=== PATIENT | male | born 1945 | race Caucasian/White ===

== ENCOUNTER 2019-05-17 19:39 | Emergency (ER) | payer MEDICARE, OTHER, SELFPAY ==
[2019-05-17 19:50] VITALS: BP 180/112; PULSE 100; RESP 17; TEMP 37.2; O2SAT 99; BMI 31.3
[2019-05-17 20:09] LABS: Add Manual Diff / Slide Review NO; Basophils Absolute Auto 0 /uL (0-100); Basophils Percent Auto 0.5 % (0-2); Eosinophils Absolute Auto 0 /uL (0-450); Eosinophils Percent Auto 0.2 % (2-4); Hematocrit 45.4 % (41-53); Hemoglobin 15.5 g/dL (13.5-17.5); Lymphocytes Absolute Auto 1000 /uL (1100-4500); Lymphocytes Percent Auto 11.3 % (25-40); Mean Corpuscular HGB Conc 34.1 % (30-36); Mean Corpuscular Hemoglobin 31.7 PG (26-34); Mean Corpuscular Volume 92.8 fL (80-100); Monocytes Absolute Auto 300 /uL (0-900); Monocytes Percent Auto 3.8 % (3-14); Neutrophils Absolute Auto 7500 /uL (1500-7000); Neutrophils Percent Auto 84.2 % (50-75); Platelet Count 210 X10^3/uL (150-400); Red Blood Cell Count 4.89 X10^6/uL (4.5-5.9); Red Cell Distribution Width 13.2 % (11.6-14.8); White Blood Cell Count 8.9 X10^3/uL (4.5-11.0)
[2019-05-17 20:11] LABS: Prothrombin Time 11.8 SECONDS (10.1-12.7)
--- NOTE | 2019-05-17 20:11 | ED.CHESTPAIN ---
HPI - Chest Pain General Chief Complaint: Chest Pain Stated Complaint: vomiting, chest pain Time Seen by Provider: 05/17/19 20:04 Source: patient Mode of arrival: ambulatory Limitations: no limitations History of Present Illness HPI narrative: Patient is a 73-year-old male who presents with epigastric pain starting around 10:00 a.m. today. He had some oatmeal he feels like there is a knot gripping right in his epigastric area slightly behind his sternum. He denies any actual chest pain. It seems to come and go throughout the day. He got diaphoretic and threw up once as well. He has no abdominal pain. Denies shortness of breath with exertion. He has had a few episodes throughout the day. He says his discomfort now is completely gone. He was previously admitted for a TIA at [facility] complaint: chest pain (Epigastric) Related Data Home Medications Medication Instructions Recorded Confirmed aspirin 81 mg PO QDAY #0 02/15/13 Previous Rx's Medication Instructions Recorded alprazolam 0 mg PO QDAY #10 tab 04/25/17 amlodipine [Norvasc] 5 mg PO QDAY #90 tab 05/20/17 Allergies Allergy/AdvReac Type Severity Reaction Status Date / Time fire ant [FIRE ANT] Allergy Severe ANAPHYLAXIS Verified 05/17/19 19:50 venom-wasp [WASP VENOM] Allergy Severe ANAPHYLAXIS Verified 05/17/19 19:50 FROM YELLOW JACKETS hydrochlorothiazide Allergy Mild LETHARGY, Verified 05/17/19 19:50 [From ZESTORETIC] DEPRESSION lisinopril [From ZESTORETIC] Allergy Mild LETHARGY, Verified 05/17/19 19:50 DEPRESSION NEWSPAPER/MAGAZINE INK Allergy Mild SNEEZING Uncoded 12/28/17 11:58 Review of Systems Review of Systems Narrative: GENERAL: Denies chills, fatigue, malaise, fever, sweats, travel HEENT: Denies sinus pain, ear pain, sore throat, difficulty swallowing, neck pain RESPIRATORY: Denies dyspnea, cough, wheezing, hemoptysis, sputum. CARDIOVASCULAR: See HPI GASTROINTESTINAL: Denies nausea, vomiting, abdominal pain, diarrhea, constipation, melena. : Denies dysuria, frequency, incontinence, hematuria, urinary retention, flank pain. MUSCULOSKELETAL: Denies weakness, joint pain, or bony pain SKIN: No rash, no erythema, no pruritus NEUROLOGIC: Denies weakness, dizziness, headache, numbness, change in speech, confusion PSYCHIATRIC: No concerning psychosocial issues. 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 HEENT: Head atraumatic,EOMI, pupils reactive, face symmetric, [moist] mucous membranes CARDIOVASCULAR: Regular rate and rhythm without murmurs, rubs or gallops. RESPIRATORY: Breath sounds equal bilaterally, no wheezes rales or rhonchi. ABDOMEN: Soft, nontender. Normoactive bowel sounds all 4 quadrants. No guarding or rebound. : No CVA tenderness EXTREMITIES: Normal range of motion, no clubbing or edema. Neurovascularly intact NEUROLOGICAL: Alert and oriented x4.Normal gait and speech. Cranial nerves II through XII grossly intact. SKIN: Warm, dry, no laceration, no petechiae, no rashes or lesions. Scores HEART Score Heart Score history: Slightly Suspicious Heart Score EKG: Normal Heart Score Age: > or = 65 years old Heart Score risk factors: 1-2 risk factors Heart Score troponin: < or = to normal limit Heart Score Total: 3 Course Orders Ordered: ED Orders 05/17/19 19:55 Complete Blood Count AUTO DIFF Stat Comprehensive Metabolic Panel Stat Lipase Stat Partial Thromboplastin Time Stat Prothrombin Time INR Stat Troponin & CK Cardiac Panel Stat 05/17/19 21:33 XR chest 1V Stat Vital Signs Vital signs: Vital Signs - 8 hr 05/17/19 19:50 05/17/19 21:52 05/17/19 22:16 Temperature 98.9 F Pulse Rate 100 H 80 83 Respiratory Rate 17 24 17 Blood Pressure 180/112 H 128/80 Blood Pressure [Right Arm] 128/80 Pulse Oximetry 99 97 97 MDM - Chest Pain Lab Data Attestation: I reviewed the patient's lab results. Result diagrams: 05/17/19 19:55 05/17/19 19:55 Labs: Lab Results 05/17/19 05/17/19 05/17/19 Range/Units 19:55 19:55 19:55 WBC 8.9 (4.5-11.0) X10^3/uL RBC 4.89 (4.5-5.9) X10^6/uL Hgb 15.5 (13.5-17.5) g/dL Hct 45.4 (41-53) % MCV 92.8 (80-100) fL MCH 31.7 (26-34) PG MCHC 34.1 (30-36) % RDW 13.2 (11.6-14.8) % Plt Count 210 (150-400) X10^3/uL Neut % (Auto) 84.2 H (50-75) % Lymph % (Auto) 11.3 L (25-40) % Sargent % (Auto) 3.8 (3-14) % Eos % (Auto) 0.2 L (2-4) % Baso % (Auto) 0.5 (0-2) % Neut # (Auto) 7500 H (1613-2415) /uL Lymph # (Auto) 1000 L (0505-9810) /uL Sargent # (Auto) 300 (0-900) /uL Eos # (Auto) 0 (0-450) /uL Baso # (Auto) 0 (0-100) /uL PT 11.8 (10.1-12.7) SECONDS INR 1.0 (0.9-1.3) APTT 29 (26.4-36.2) SECONDS Sodium 143 (137-145) mmol/L Potassium 4.3 (3.4-5.1) mmol/L Chloride 104 (98-107) mmol/L Carbon Dioxide 27 (22-32) mmol/L BUN 17 (9-20) mg/dL Creatinine 0.90 (0.66-1.25) mg/dL Estimated GFR > 60.0 (>60) mL/min BUN/Creatinine Ratio 18.9 (6-22) Glucose 125 H (80-110) mg/dL Calcium 10.2 (8.4-10.2) mg/dL Total Bilirubin 2.2 H (0.2-1.3) mg/dL AST 252 H (17-59) IU/L ALT 220 H (21-72) IU/L Alkaline Phosphatase 97 (38-126) U/L Total Creatine Kinase (55-170) U/L CK-MB (CK-2) (<2.37) ng/mL CK-MB (CK-2) Rel Index (1.5-5.0) % Troponin I (0.01-0.034) ng/mL Total Protein 8.1 (6.3-8.2) g/dL Albumin 4.5 (3.5-5.0) g/dL Globulin 3.6 (1.7-4.1) g/dL Albumin/Globulin Ratio 1.3 (1.0-2.8) Lipase 51 (23-300) U/L 05/17/19 Range/Units 19:55 WBC (4.5-11.0) X10^3/uL RBC (4.5-5.9) X10^6/uL Hgb (13.5-17.5) g/dL Hct (41-53) % MCV (80-100) fL MCH (26-34) PG MCHC (30-36) % RDW (11.6-14.8) % Plt Count (150-400) X10^3/uL Neut % (Auto) (50-75) % Lymph % (Auto) (25-40) % Sargent % (Auto) (3-14) % Eos % (Auto) (2-4) % Baso % (Auto) (0-2) % Neut # (Auto) (6870-3384) /uL Lymph # (Auto) (0051-7412) /uL Sargent # (Auto) (0-900) /uL Eos # (Auto) (0-450) /uL Baso # (Auto) (0-100) /uL PT (10.1-12.7) SECONDS INR (0.9-1.3) APTT (26.4-36.2) SECONDS Sodium (137-145) mmol/L Potassium (3.4-5.1) mmol/L Chloride (98-107) mmol/L Carbon Dioxide (22-32) mmol/L BUN (9-20) mg/dL Creatinine (0.66-1.25) mg/dL Estimated GFR (>60) mL/min BUN/Creatinine Ratio (6-22) Glucose (80-110) mg/dL Calcium (8.4-10.2) mg/dL Total Bilirubin (0.2-1.3) mg/dL AST (17-59) IU/L ALT (21-72) IU/L Alkaline Phosphatase (38-126) U/L Total Creatine Kinase 208 H (55-170) U/L CK-MB (CK-2) 2.37 (<2.37) ng/mL CK-MB (CK-2) Rel Index 1.1 L (1.5-5.0) % Troponin I 0.021 (0.01-0.034) ng/mL Total Protein (6.3-8.2) g/dL Albumin (3.5-5.0) g/dL Globulin (1.7-4.1) g/dL Albumin/Globulin Ratio (1.0-2.8) Lipase (23-300) U/L Imaging Data Chest x-ray: Radiologist's impression: PROCEDURE: XR CHEST 1V INDICATIONS: chest pain TECHNIQUE: One view of the chest was acquired. COMPARISON: None. FINDINGS: Surgical changes and devices: None. Lungs and pleura: Lungs are clear. No pleural effusions or pneumothorax. Mediastinum: Mediastinal contours appear normal. Heart size is normal. Bones and chest wall: No suspicious bony lesions. Overlying soft tissues appear unremarkable. IMPRESSION: No acute cardiopulmonary findings. Dictated by: Kayla Berry M.D. on 05/17/2019 at 21:45 Approved by: Kayla Berry M.D. on 05/17/2019 at 21:45 ECG Data Attestation: I personally reviewed and interpreted this ECG as follows: Prior ECG tracings: not available for review Interpretation: A normal sinus rhythm with PVCs no ST changes Q-waves noted in 3 and AVF no priors to compare MDM Narrative Medical decision making narrative: The patient has remained pain-free in the emergency department. Of low heart score troponin negative discomfort has been ongoing for more than 6 hours. At this time patient can follow up with PCP. He has no right upper quadrant pain to suggest gallstones or cholecystitis. Blood work overall reassuring. Discharge Plan Departure Patient Disposition: Home Clinical Impression: Atypical chest pain Discharge Date/Time: 05/17/19 22:18 Instructions: DI for Atypical Chest Pain Activity Restrictions/Additional Instructions: *You have been diagnosed with atypical chest pain *What to do: At this time blood work x-ray EKG are reassuring. However you still may require a stress test on your heart. Please discuss this with her primary care provider. You may also need an ultrasound to check her gallbladder your primary can also ordered this. *Continue to take medications as directed *Follow up with your primary care provider in 2-3 days *Return to ER if you should have increasing chest pain epigastric pain, shortness of breath, vomiting or any new, worsening or concerning symptoms Prescriptions: No Action aspirin 81 MG tablet,delayed release (DR/EC) 81 mg PO QDAY Qty: 0 RF: 0 alprazolam 0.25 MG tablet 0 mg PO QDAY Qty: 10 RF: 0 amlodipine [Norvasc] 5 MG tablet 5 mg PO QDAY Qty: 90 RF: 0 Referrals: Yann Walters MD [Primary Care Provider] -
[2019-05-17 20:13] LABS: PTT Partial Thromboplastin Tim 29 SECONDS (26.4-36.2)
[2019-05-17 20:15] LABS: Alanine Aminotransferase 220 IU/L (21-72); Albumin 4.5 g/dL (3.5-5.0); Albumin Globulin Ratio 1.3 (1.0-2.8); Alkaline Phosphatase 97 U/L (38-126); Aspartate Aminotransferase 252 IU/L (17-59); BUN Creatinine Ratio 18.9 (6-22); Bilirubin Total 2.2 mg/dL (0.2-1.3); Blood Urea Nitrogen 17 mg/dL (9-20); Calcium 10.2 mg/dL (8.4-10.2); Carbon Dioxide 27 mmol/L (22-32); Chloride 104 mmol/L (98-107); Estimated Glomerular Filt Rate > 60.0 mL/min (>60); Globulin 3.6 g/dL (1.7-4.1); Glucose 125 mg/dL (80-110); HEMOLYSIS < 15 (0-50); Lipase 51 U/L (23-300); Potassium 4.3 mmol/L (3.4-5.1); Sodium 143 mmol/L (137-145); Total Protein 8.1 g/dL (6.3-8.2)
[2019-05-17 20:43] LABS: Creatine Kinase 208 U/L (55-170)
[2019-05-17 20:55] LABS: Troponin I 0.021 ng/mL (0.01-0.034)
[2019-05-17 20:58] LABS: CKMB % Relative Index 1.1 % (1.5-5.0); Creatine Kinase MB 2.37 ng/mL (<2.37)
--- NOTE | 2019-05-17 21:33 | DI.RAD.S_ITS ---
PROCEDURE: XR CHEST 1V INDICATIONS: chest pain TECHNIQUE: One view of the chest was acquired. COMPARISON: None. FINDINGS: Surgical changes and devices: None. Lungs and pleura: Lungs are clear. No pleural effusions or pneumothorax. Mediastinum: Mediastinal contours appear normal. Heart size is normal. Bones and chest wall: No suspicious bony lesions. Overlying soft tissues appear unremarkable. IMPRESSION: No acute cardiopulmonary findings. Dictated by: Kayla Berry M.D. on 05/17/2019 at 21:45 Approved by: Kayla Berry M.D. on 05/17/2019 at 21:45
[2019-05-17 21:52] VITALS: BP 128/80; PULSE 80; RESP 24; O2SAT 97
[2019-05-17 22:16] VITALS: BP 128/80; PULSE 83; RESP 17; O2SAT 97
== END 2019-05-17 22:18 | disposition home or self-care (01) ==
PROVIDERS: Emergency Provider Emergency Medicine; Family Provider Family Medicine; PCP Family Medicine
DX: R07.89 Other chest pain (principal)
CPT/HCPCS: 36591; 71045; 80053; 82550; 82553; 83690; 84484; 85025; 85610; 85730; 93005; 99282; 99285

== ENCOUNTER 2021-02-20 10:36 | Emergency (ER) | payer MEDICARE, OTHER, SELFPAY ==
[2021-02-20] VITALS (7 sets, daily range): BP systolic 156–175; BP diastolic 105–121; PULSE 79–93; RESP 16–26; TEMP 36.6; O2SAT 95–99; BMI 35.7
--- NOTE | 2021-02-20 11:03 | ED.ALLEREA ---
HPI - Allergic Reaction General Chief complaint: Allergic Reaction Stated complaint: Bee sting, Allergic reaction Time Seen by Provider: 02/20/21 10:46 Source: patient Mode of arrival: EMS Limitations: no limitations History of Present Illness HPI narrative: Patient is a 75-year-old male who was brought to the emergency department today by air lift for evaluation of an allergic reaction. He sustained a bee sting on his left little finger. He has had allergic reaction to bee stings in the past. He states shortly afterwards he started having hives. He went and took some Benadryl without any improvement. He thought the eyes were worsening and then started getting swelling the left side of his face. No vomiting. He contacted EMS. He received epinephrine at approximately 0800 hours this morning. Also received steroids and more Benadryl. He states that the symptoms resolved. He was sent to the emergency department for observation. Related Data Home Medications Medication Instructions Recorded Confirmed aspirin 81 mg PO QDAY #0 02/15/13 Previous Rx's Medication Instructions Recorded alprazolam 0 mg PO QDAY #10 tab 04/25/17 amlodipine [Norvasc] 5 mg PO QDAY #90 tab 05/20/17 epinephrine [EpiPen 2-Skip] 0.3 mg IM Q5-15M PRN #1 ea 02/20/21 Allergies Allergy/AdvReac Type Severity Reaction Status Date / Time fire ant [FIRE ANT] Allergy Severe ANAPHYLAXIS Verified 05/17/19 19:50 venom-wasp [WASP VENOM] Allergy Severe ANAPHYLAXIS Verified 05/17/19 19:50 FROM YELLOW JACKETS hydrochlorothiazide Allergy Mild LETHARGY, Verified 05/17/19 19:50 [From ZESTORETIC] DEPRESSION lisinopril [From ZESTORETIC] Allergy Mild LETHARGY, Verified 05/17/19 19:50 DEPRESSION NEWSPAPER/MAGAZINE INK Allergy Mild SNEEZING Uncoded 12/28/17 11:58 Review of Systems Review of Systems Narrative: Patient currently has no symptoms. Cardiovascular Cardiovascular: Denies chest pain and Denies dyspnea Respiratory Respiratory: Denies dyspnea Gastrointestinal Gastrointestinal: Denies abdominal pain Integumentary/Breasts Skin/Breast: Reports system reviewed and no additional complaints, except as documented and Denies rash Hematologic/Lymphatic On Anticoagulants: No Allergic/Immunologic Allergic/Immunologic: Reports system reviewed and no additional complaints, except as documented Patient History Medical History (Updated 02/20/21 @ 11:07 by Damien Pineda DO) Carpal tunnel syndrome (01/29/16) Erectile dysfunction due to arterial insufficiency (01/29/16) Essential hypertension with goal blood pressure less than 140/90 (01/29/16) Premature atrial contraction (10/15/16) Primary osteoarthritis of both knees (01/18/17) 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 major depressive disorder, in full remission (01/29/16) Rotator cuff impingement syndrome of right shoulder (07/27/16) Ventricular premature beats (10/15/16) Social History Smoking Status: Unknown if ever smoked Smoking Status: Unknown if ever smoked alcohol intake frequency: holidays/special occasions only Substance Use Type: does not use Exam Initial Vital Signs Initial Vital Signs: Vital Signs Temperature 97.8 F 02/20/21 10:48 Pulse Rate 93 H 02/20/21 10:48 Respiratory Rate 16 02/20/21 10:48 Blood Pressure 173/105 H 02/20/21 10:48 Pulse Oximetry 97 02/20/21 10:48 Const General: cooperative and comfortable Limitations: mental status not altered HENMT Head: normal to inspection and normocephalic Resp Effort & Inspection: normal respiratory effort Auscultation: clear to auscultation bilaterally Cardio Rate: regular rate Rhythm: regular rhythm GI Inspection: non-distended Palpation: soft Skin Lesions: no lesions Rashes: no rashes Neuro General: patient alert and patient awake Cognition: normal cognition Speech: speech normal Extrem General: capillary refill normal Psych Appearance: grossly normal and well kempt Course Vital Signs Vital signs: Vital Signs - 8 hr 02/20/21 10:48 02/20/21 10:57 02/20/21 11:00 Temperature 97.8 F Pulse Rate 93 H 86 90 Respiratory Rate 16 24 26 H Blood Pressure 173/105 H 175/115 H Pulse Oximetry 97 97 97 02/20/21 11:30 Temperature Pulse Rate 79 Respiratory Rate 20 Blood Pressure 163/121 H Pulse Oximetry 95 MDM - Allergic Reaction MDM Narrative Medical decision making narrative: Patient was observed in the emergency department for 1 hour which was 4 hours after he was administered the epinephrine. He does not have any return of the symptoms. A prescription for epi pens was electronically transmitted to the pharmacy of his choice. He was given return precautions and follow-up instructions. He expressed understanding and agreement. Discharge Plan Departure Patient Disposition: Home Clinical Impression: Anaphylaxis Instructions: DI for Anaphylaxis Activity Restrictions/Additional Instructions: A prescription for epi pens was electronically transmitted to [facility]. I do recommend that you keep on with you at all times. Contact your primary doctor for follow-up. Return to the emergency department for any new or worsening symptoms Prescriptions: New epinephrine [EpiPen 2-Skip] 0.3 mg/0.3 mL auto-injector 0.3 mg IM Q5-15M PRN (Reason: anaphylaxis) Qty: 1 RF: 3 No Action aspirin 81 MG tablet,delayed release (DR/EC) 81 mg PO QDAY Qty: 0 RF: 0 alprazolam 0.25 MG tablet 0 mg PO QDAY Qty: 10 RF: 0 amlodipine [Norvasc] 5 MG tablet 5 mg PO QDAY Qty: 90 RF: 0 Referrals: Yann Walters MD [Primary Care Provider] -
== END 2021-02-20 12:05 | disposition home or self-care (01) ==
PROVIDERS: Emergency Provider Emergency Medicine; Family Provider Family Medicine; PCP Family Medicine
DX: T63.441A Toxic effect of venom of bees, accidental (unintentional), initial encounter (principal)
CPT/HCPCS: 99281

== ENCOUNTER → 2024-10-29 09:45 | Outpatient (CLI) | payer MEDICARE, SELFPAY ==
--- NOTE | 2024-10-29 09:48 | DI.ECHO.S_ITS ---
[facility]+ [facility] : : [address] : : [place] : : [address] : : Phone: [phone] Echocardiogram Report + + :Name: JAYCEE MELISSA Study Date: 10/29/2024 Height: 66 in : :Hospital ReadingLocation: Weight: 193 lb : : Gender: Male BSA: 2.0 m2 : :: 1945 Age: 78 yrs BP: 167/114 mmHg: :Reason For Study: ATRIAL FIBRILLATION : :Ordering Physician: LUCA, : :YOLANDE Sauer Performed By: Filippo Escobar : :Referring: YOLANDE THURMAN : + + Interpretation Summary There is moderate concentric left ventricular hypertrophy. The ejection fraction is estimated to be 55-60%. Diastolic function could not be accurately assessed due to atrial fibrillation. The right ventricle is mildly dilated. The right ventricular systolic function is normal. There is moderate biatrial enlargement. There is mild tricuspid regurgitation. The right ventricular systolic pressure is estimated to be at least 42 mmHg based on an estimated right atrial pressure of 3 mm Hg. The ascending aorta is mildly enlarged, 4.1 cm. Procedure: A two-dimensional transthoracic echocardiogram with color flow and Doppler was performed. The study quality was technically good. There is no prior echocardiogram noted for this patient. The patient was in atrial fibrillation with heart rates between 61-113 bpm during the exam. Left Ventricle: The left ventricle is normal in size. There is moderate concentric left ventricular hypertrophy. The ejection fraction is estimated to be 55-60%. There are no focal wall motion abnormalities. Diastolic function could not be accurately assessed due to atrial fibrillation. Right Ventricle: The right ventricle is mildly dilated. The right ventricular systolic function is normal. Atria: There is moderate biatrial enlargement. There is no Doppler evidence for an interatrial shunt. Mitral Valve: There is mild mitral annular calcification. The mitral valve leaflets appear mildly thickened, but open well. There is trace mitral regurgitation. Aortic Valve: The aortic valve is trileaflet. The aortic valve is mildly calcified. There is no hemodynamically significant valvular aortic stenosis. The peak aortic velocity is 1.94 m/sec. The aortic valve mean gradient is 7.7 mmHg. No aortic regurgitation is present. Tricuspid Valve: The tricuspid valve leaflets are thin and pliable. There is mild tricuspid regurgitation. The right ventricular systolic pressure is estimated to be at least 42 mmHg based on an estimated right atrial pressure of 3 mm Hg. Pulmonic Valve: The pulmonic valve leaflets are thin and pliable; valve motion is normal. There is trace pulmonic regurgitation. Great Vessels: The aortic root is mildly dilated. The ascending aorta is mildly enlarged. The pulmonary artery is normal size. The IVC is of normal diameter and collapses greater than 50% with a sniff. This suggests a low right atrial pressure of 3 mm Hg. Pericardium/ Pleura There is no pericardial effusion. There is no pleural effusion. MMode/2D Measurements & Calculations LVIDd: 4.2 cm LVOT diam: 2.3 cm LVIDs: 3.2 cm Ao root diam: 3.7 cm FS: 24.4 % asc Aorta Diam: 4.1 cm EPSS: 0.72 cm IVSd: 1.5 cm LVPWd: 1.6 cm LV johnston. diameter/BSA (cm/m^2): 2.1 LV sys. diameter/BSA (cm/m^2): 1.6 LA A2 area: 26.8 cm2 RA long axis: 6.5 cm LA A4 area: 27.7 cm2 RA area: 21.1 cm2 LA length (vol): 7.0 cm RA vol: 58.2 ml LA vol: 90.0 ml RA : 29.5 ml/m2 LA vol index: 45.7 ml/m2 IVC diam: 2.0 cm RVD1 (basal): 4.1 cm RVD2 (mid): 3.4 cm TAPSE: 2.2 cm Doppler Measurements & Calculations Ao V2 max: 193.8 cm/sec LVOT Max Ronnie: 67.7 cm/sec Ao V2 mean: 129.7 cm/sec LV V1 max P.8 mmHg Ao max P.0 mmHg LV V1 VTI: 11.8 cm Ao mean P.7 mmHg JAAML(I,D): 1.5 cm2 Ao V2 VTI: 33.3 cm JAMAL(V,D): 1.5 cm2 sev ratio: 0.36 JAMAL indexed to BSA (cm^2/m^2): 0.76 MV E max ronnie: 69.6 cm/sec TR max ronnie: 311.2 cm/sec MV A max ronnie: 22.3 cm/sec TR max P.7 mmHg MV E/A: 3.1 PA V2 max: 58.7 cm/sec Med Peak E' Ronnie: 5.7 cm/sec PA V2 mean: 41.0 cm/sec E/E' med: 12.3 PA mean P.75 mmHg Lat Peak E' Ronnie: 8.1 cm/sec SUSAN pr(Accel): 44.7 mmHg E/E' lat: 8.6 E/e' average: 10.4 MV dec time: 0.25 sec SV(LVOT): 50.0 ml Reading Physician:08:41 PM
--- NOTE | 2024-10-29 17:18 | DI.NM.S_ITS ---
DATE OF SERVICE: 10/29/2024 NUCLEAR CARDIOLOGY MYOCARDIAL PERFUSION STUDY PROCEDURE: Pharmacologic vasodilator stress and rest myocardial perfusion imaging with gating to assess ejection fraction and regional wall motion. ORDERING PROVIDER: Yolande Thurman M.D. INDICATIONS: The patient is a 78-year-old male with recently discovered atrial fibrillation/flutter with exertional dyspnea. CARDIAC STRESS: His baseline heart rate of 90-100 bpm increased to 120-130 bpm with standing, and then fairly dramatically up to 173 bpm (122% of his predicted maximum) with infusion of 0.4 mg of Lexiscan. He was hypertensive at rest at 170/110, dropping down to 160/100 with stress. He had no chest discomfort and only minimal dyspnea. His resting ECG shows atrial fibrillation/flutter with nonspecific ST-segment abnormalities in the lateral leads with occasional PVCs. With pharmacologic stress, his PVCs increased with occasional couplets, and there was significant accentuation of the ST-segment abnormalities with 2- [address] depression in the lateral leads, less so in the inferior, but resolved promptly with return to lower heart rates, suggesting it may reflect a rate-related phenomenon. He continued to have occasional PVCs but no concerning ventricular ectopy. Per protocol, 25.4 mCi of technetium-99m Myoview was injected and he was imaged 15 minutes later using a gated SPECT acquisition protocol. Earlier in the day while at rest, he had been injected with 12.0 mCi of technetium-99m Myoview and was imaged 15 minutes later, again using a gated SPECT acquisition protocol. FINDINGS: 1. Raw data: There is fairly good myocardial tracer uptake. The lung/heart ratio is normal at 0.30 with a normal TID ratio of 0.88. 2. Quantitated gated SPECT: Post-stress ejection fraction is estimated at 51% without any focal wall motion abnormality, and specifically the distal inferior wall has normal contractility. The resting ejection fraction is 52% with a similar contraction pattern. Resting end-diastolic volume is mildly increased at 132 mL. 3. Myocardial perfusion imaging: Post-stress supine images show a fairly small, focal perfusion defect in the mid and distal inferolateral wall, possibly related to diaphragmatic attenuation given its near complete resolution on the prone images, although a small focal defect remains present in the very distal inferolateral wall, suggesting this could reflect a true perfusion defect. The resting images also show a subtle perfusion defect in the inferolateral wall but with some improvement compared to the resting supine images. IMPRESSION: 1. Probable abnormal myocardial perfusion study. 2. Very small, focal, partially reversible perfusion defect in the mid and distal inferolateral wall that mostly resolves on prone images except for a very small focal area in the distal inferolateral wall. This could reflect a small volume of myocardial ischemia or attenuation artifact, but given the reversibility and the ECG changes seen, ischemia should be considered. 3. Low-normal left ventricular systolic function without focal wall motion abnormality and mildly increased left ventricular volumes. 4. No angina with pharmacologic stress but with resting tachycardia from atrial fibrillation/flutter, with the heart rate increasing significantly from a supine to standing position and a marked tachycardia with pharmacologic stress, associated with significant ST-segment changes which could reflect ischemia but are nonspecific because of baseline ST-segment abnormalities and prompt resolution with normalization of the heart rate. There were occasional PVCs, rarely in couplets, but no other complex ectopy. [employer] - RS/adam/[place] doc#: [id number]/job#: [id number] dd: 10/29/2024 16:53:00 dt: 10/29/2024 17:02:00 DICTATING MD/COPIES TO: Yann Rosenthal MD; Yolande Thurman M.D. COPIES VERAE: MALVIN;
== END ==
PROVIDERS: Family Provider Family Medicine; PCP Family Medicine; Referring Provider Internal Medicine Cardiovascular Disease; Visit Provider Internal Medicine Cardiovascular Disease
DX: I48.91 Unspecified atrial fibrillation (principal); I48.92 Unspecified atrial flutter; I08.1 Rheumatic disorders of both mitral and tricuspid valves; I77.810 Thoracic aortic ectasia; I77.89 Other specified disorders of arteries and arterioles; R06.00 Dyspnea, unspecified
CPT/HCPCS: 78452; 93017; 93306; A9502; J2785